=== PATIENT | male | born 1990 | race Caucasian/White ===

== ENCOUNTER 2021-06-16 08:28 | Emergency (ER) | payer OTHER ==
[~2021-06-16] VITALS: Ht 188 cm; Wt 108.0 kg
[2021-06-16] MEDS ORDERED: IBUPROFEN 400MG TABLET PO ONE (09:15)
[2021-06-16 09:53] LABS: BASOPHILS % 0.3 % (0.0-2.0); EOSINOPHILS % 0.1 % (0.0-5.0); HEMATOCRIT. 47.2 % (42.0-52.0); HEMOGLOBIN. 15.8 g/dL (14.0-18.0); LYMPHOCYTES % 12.6 % (20.0-50.0); MEAN CORPUSCULAR HEMOGLOBIN 28.8 pg (28.0-32.0); MEAN CORPUSCULAR VOLUME 86.3 fL (80.0-94.0); MEAN PLATELET VOLUME 9.5 fl (7.4-10.4); MONOCYTES % 10.2 % (2.0-8.0); NEUTROPHILS % 76.8 % (40.0-76.0); PLATELET 172 x1000/uL (130-400); RED BLOOD CELL COUNT 5.47 mill/uL (4.7-6.1); RED CELL DISTRIBUTION WIDTH 13.3 % (11.6-14.6)
[2021-06-16 09:55] LABS: CHLORIDE 104 mEq/L (98-107)
[2021-06-16 10:18] LABS: MONOTEST NEGATIVE (NEGATIVE)
[2021-06-16] MEDS ORDERED: MUPI1OIN4 TP (12:04)
[2021-06-16] MEDS ORDERED: IBUP-2028 MT (12:05)
[2021-06-16 12:28] VITALS: BP 126/86
== END 2021-06-16 12:29 | disposition home or self-care (01) ==
LOC: ER 08:28
DX: J02.9 Acute pharyngitis, unspecified (principal); L01.00 Impetigo, unspecified
CPT/HCPCS: 36415; 80053; 85025; 86308; 87070; 87430; 99283